=== PATIENT | female | born 1995 | race American Indian/Alaskan Native ===

== ENCOUNTER 2018-11-25 20:41 | Emergency (ER) | payer SELFPAY ==
[2018-11-25] MEDS ORDERED: DECADRON IM ONE (22:28)
[2018-11-25] MEDS ORDERED: BENADRYL PO ONE (22:28)
[2018-11-25] MEDS ORDERED: PEPCID PO ONE (22:28)
--- NOTE | 2018-11-25 22:34 | Emergency Department Report ---
HPI - General Chief Complaint: Allergic Reaction Time Seen by Provider: 11/25/18 22:28 - HPI HPI: pt states she was driving [place] and started to breakout in hives , has hx of same 1 yr ago still unknow cause symptoms include hives itching uticarial rash face neck trunk upper and lower extremities there is no sob no wheezing no stridor ED Past Medical Hx - Past Medical History Previous Medical History?: No - Surgical History Past Surgical History?: No - Social History Smoking Status: Never Smoker - Medications Home Medications: Home Medications Medication Instructions Recorded Confirmed Last Taken Type EPINEPHrine [Epipen 2-Ezio] 0.3 mg IJ PRN #1 auto.injct 11/25/18 Unknown Rx Famotidine [Pepcid] 20 mg PO BID 7 Days #14 tablet 11/25/18 Unknown Rx dexAMETHasone [Decadron] 4 mg PO BID 3 Days #6 tablet 11/25/18 Unknown Rx diphenhydrAMINE [Benadryl CAP] 25 mg PO Q6HR 7 Days #30 capsule 11/25/18 Unknown Rx ED Review of Systems ROS: Stated complaint: ALLERGIC REACTION FEELS LIKE THROAT CLOSING Other details as noted in HPI Constitutional: denies: chills, fever Eyes: denies: eye pain, eye discharge, vision change ENT: denies: ear pain, throat pain Respiratory: denies: cough, shortness of breath, wheezing Cardiovascular: denies: chest pain, palpitations Endocrine: no symptoms reported Gastrointestinal: denies: abdominal pain, nausea, diarrhea Genitourinary: denies: urgency, dysuria, discharge Musculoskeletal: denies: back pain, joint swelling, arthralgia Skin: pruritus, other (hives ). denies: rash Neurological: denies: headache, weakness, paresthesias Psychiatric: denies: anxiety, depression Hematological/Lymphatic: denies: easy bleeding, easy bruising Physical Exam - Physical Exam Vital Signs: Vital Signs 11/25/18 11/25/18 20:46 21:01 Temperature 99.1 F 99.1 F Pulse Rate 96 H 95 H Respiratory 18 18 Rate Blood Pressure 114/64 114/64 O2 Sat by Pulse 95 95 Oximetry General: Patient appears with no acute distress patient appears well hydrated well- nourished there is no respiratory distress no wheezing no stridor Physical Exam: ENT is patent there is no wheezing no swelling mostly clear bilaterally no wheezing no rhonchi no rhales , mild hives erythema no pain no fever ED Course Vital Signs 11/25/18 11/25/18 20:46 21:01 Temperature 99.1 F 99.1 F Pulse Rate 96 H 95 H Respiratory 18 18 Rate Blood Pressure 114/64 114/64 O2 Sat by Pulse 95 95 Oximetry ED Medical Decision Making - Medical Decision Making allergic reaction unknown trigger, symptoms are improved plan: benadryl , pepcid, decadron, given epipen teaching will dc with epipen pt will follow up with pcp in 2 days , will return to ed if symptoms worsen, pt is currently a/ox 3 ambulatory with steady gait. there is no resp distress no wheezing no sob no stridor Critical care attestation.: If time is entered above; I have spent that time in minutes in the direct care of this critically ill patient, excluding procedure time. ED Disposition Clinical Impression: Allergic reaction Qualifiers: Encounter type: initial encounter Qualified Code(s): T78.40XA - Allergy, unspecified, initial encounter Disposition: DC- TO HOME OR SELFCARE Is pt being admited?: No Does the pt Need Aspirin: No Condition: Stable Instructions: Epinephrine (Injection), Allergies (ED) Prescriptions: diphenhydrAMINE [Benadryl CAP] 25 mg PO Q6HR 7 Days #30 capsule dexAMETHasone [Decadron] 4 mg PO BID 3 Days #6 tablet EPINEPHrine [Epipen 2-Ezio] 0.3 mg IJ PRN #1 auto.injct Famotidine [Pepcid] 20 mg PO BID 7 Days #14 tablet Referrals: LISA IGNACIO MD [Staff Physician] - 3-5 Days [facility] [Outside] - 3-5 Days Forms: Work/School Release Form(ED) Time of Disposition: 22:41
[2018-11-25 23:56] VITALS: BP 119/64
== END 2018-11-25 23:00 | disposition home or self-care (01) ==
LOC: ED 20:41
DX: T78.40XA Allergy, unspecified, initial encounter (principal); Y92.89 Other specified places as the place of occurrence of the external cause
CPT/HCPCS: 96372; 99282; J1100

== ENCOUNTER 2018-12-28 16:13 | Emergency (ER) | payer OTHER ==
--- NOTE | 2018-12-28 16:21 | Event Note ---
ED Screening Note ED Screening Note: vag discharge [id number] no bleeding epigastric pain pt confirmed preg at obgyn LMP 11/25 This initial assessment/diagnostic orders/clinical plan/treatment(s) is/are subject to change based on patients health status, clinical progression and re- assessment by fellow clinical providers in the ED. Further treatment and workup at subsequent clinical providers discretion. Patient/guardian urged not to elope from the ED as their condition may be serious if not clinically assessed and managed. Initial orders include: ua
[2018-12-28 16:57] LABS: Bilirubin,Urine NEG (Negative); Blood,Urine NEG (Negative); Color,Urine Yellow (Yellow); Mucus,Urine 3+ /HPF; Protein,Urine <15 mg/dL mg/dL (Negative); Urobilinogen,Urine < 2.0 mg/dL (<2.0); WBC,Urine < 1.0 /HPF (0.0-6.0)
--- NOTE | 2018-12-28 17:31 | Emergency Department Report ---
ED HPI - General Chief complaint: Abdominal Pain Stated complaint: 4WKS /STOMACH PAIN Time Seen by Provider: 12/28/18 16:19 Source: patient Mode of arrival: Ambulatory Limitations: No Limitations - History of Present Illness Initial comments: Patient is a 23-year-old female presents to the emergency room with complaints of "stomachache" that began 2 days ago. She states she is currently 5 weeks . States she has also been having a vaginal discharge for the last 3 weeks which she states now has an odor. She denies any nausea, vomiting, diarrhea, fever, urinary symptoms, vaginal bleeding. She states on December 19 she did see preferred women's CRISIS COUNSELOR and had her confirmed just by urine. She denies any past medical history or allergies to medications. /P:0/A:2 - Related Data Previous Rx's Medication Instructions Recorded Last Taken Type EPINEPHrine [Epipen 2-Ezio] 0.3 mg IJ PRN #1 auto.injct 11/25/18 Unknown Rx Famotidine [Pepcid] 20 mg PO BID 7 Days #14 tablet 11/25/18 Unknown Rx dexAMETHasone [Decadron] 4 mg PO BID 3 Days #6 tablet 11/25/18 Unknown Rx diphenhydrAMINE [Benadryl CAP] 25 mg PO Q6HR 7 Days #30 capsule 11/25/18 Unknown Rx metroNIDAZOLE [metroNIDAZOLE 1 applicator VG DAILY 5 Days #5 12/28/18 Unknown Rx VAGINAL 0.75% gel] gel.w.appl Allergies Allergy/AdvReac Type Severity Reaction Status Date / Time No Known Allergies Allergy Unverified 11/25/18 21:04 ED Review of Systems ROS: Stated complaint: 4WKS /STOMACH PAIN Other details as noted in HPI Comment: All other systems reviewed and negative ED Past Medical Hx - Past Medical History Previous Medical History?: No - Surgical History Past Surgical History?: No - Social History Smoking Status: Never Smoker Substance Use Type: None - Medications Home Medications: Home Medications Medication Instructions Recorded Confirmed Last Taken Type EPINEPHrine [Epipen 2-Ezio] 0.3 mg IJ PRN #1 auto.injct 11/25/18 Unknown Rx Famotidine [Pepcid] 20 mg PO BID 7 Days #14 tablet 11/25/18 Unknown Rx dexAMETHasone [Decadron] 4 mg PO BID 3 Days #6 tablet 11/25/18 Unknown Rx diphenhydrAMINE [Benadryl CAP] 25 mg PO Q6HR 7 Days #30 capsule 11/25/18 Unknown Rx metroNIDAZOLE [metroNIDAZOLE 1 applicator VG DAILY 5 Days #5 12/28/18 Unknown Rx VAGINAL 0.75% gel] gel.w.appl ED Physical Exam - General Limitations: No Limitations General appearance: alert, in no apparent distress - Head Head exam: Present: atraumatic, normocephalic - Eye Eye exam: Present: normal appearance, PERRL, EOMI - ENT ENT exam: Present: mucous membranes moist - Respiratory Respiratory exam: Present: normal lung sounds bilaterally. Absent: respiratory distress, wheezes, rales, rhonchi, stridor, chest wall tenderness, accessory muscle use, decreased breath sounds, prolonged expiratory - Cardiovascular Cardiovascular Exam: Present: regular rate, normal rhythm, normal heart sounds. Absent: systolic murmur, diastolic murmur, rubs, gallop - GI/Abdominal GI/Abdominal exam: Present: soft, normal bowel sounds. Absent: distended, t enderness, guarding, rebound, rigid - External exam: Present: normal external exam. Absent: erythema, swelling, lesions, lacerations, ecchymosis, bleeding Speculum exam: Present: vaginal discharge (small amount white discharge), cervical discharge (small amount white discharge), other (inspection machine tender: Rebecca). Absent: vaginal bleeding, foreign body, tissue, laceration Bi-manual exam: Present: normal bi-manual exam. Absent: cervical motion tendernes, adnexal tenderness, adnexal mass - Back Exam Back exam: Absent: CVA tenderness (R), CVA tenderness (L) - Neurological Exam Neurological exam: Present: alert, oriented X3 - Psychiatric Psychiatric exam: Present: normal affect, normal mood - Skin Skin exam: Present: warm, dry, intact ED Course Vital Signs 12/28/18 12/28/18 12/28/18 16:19 19:43 19:45 Temperature 98.1 F 98 F Pulse Rate 106 H 88 Respiratory 16 18 18 Rate Blood Pressure 115/77 Blood Pressure 112/68 [Left] O2 Sat by Pulse 100 100 100 Oximetry ED Medical Decision Making - Lab Data Lab Results 12/28/18 Range/Units 16:46 Urine Color Yellow (Yellow) Urine Turbidity Clear (Clear) Urine pH 5.0 (5.0-7.0) Ur Specific [place] 1.023 (1.003-1.030) Urine Protein <15 mg/dl (Negative) mg/dL Urine Glucose (UA) Neg (Negative) mg/dL Urine Ketones Tr (Negative) mg/dL Urine Blood Neg (Negative) Urine Nitrite Neg (Negative) Urine Bilirubin Neg (Negative) Urine Urobilinogen < 2.0 (<2.0) mg/dL Ur Leukocyte Esterase Neg (Negative) Urine WBC (Auto) < 1.0 (0.0-6.0) /HPF Urine RBC (Auto) 2.0 (0.0-6.0) /HPF U Epithel Cells (Auto) 3.0 (0-13.0) /HPF Urine Mucus 3+ /HPF - Radiology Data Radiology results: report reviewed US OB transvaginal INDICATION / CLINICAL INFORMATION: 5 weeks , abd pain. COMPARISON: None available. FINDINGS: Intrauterine gestational sac measures 7.4 mm, 5 weeks 3 days. Yolk sac is visualized. No pole is identified. No uterine abnormalities are seen. Maternal ovaries are unremarkable. Flow is seen to both ovaries. No adnexal lesions. No free fluid. IMPRESSION: 1. Intrauterine gestational sac measures 5 weeks, 3 days. Yolk sac is seen but no pole is identified. This could be due to very early . Correlation with serial beta hCG levels is recommended. Signer Name: Fletcher Pereira MD Signed: 12/28/2018 7:08 PM Workstation Name: [id number] Transcribed By: PAUL Dictated By: Fletcher Pereira MD Electronically Authenticated By: Fletcher Pereira MD Signed Date/Time: 12/28/181907 - Medical Decision Making Patient is a 23-year-old female presents to the emergency room with complaints of "stomachache" that began 2 days ago. She states she is currently 5 weeks . States she has also been having a vaginal discharge for the last 3 weeks which she states now has an odor. She denies any nausea, vomiting, diarrhea, fever, urinary symptoms, vaginal bleeding. She states on December 19 she did see preferred women's CRISIS COUNSELOR and had her confirmed just by urine. She denies any past medical history or allergies to medications. /P:0/A:2. VSS. no abd tenderness on exam. UA without evidence of UTI. wet prep shows evidence of BV. pt swabbed for G/C. OB US shows: Intrauterine gestational sac measures 5 weeks, 3 days. Yolk sac is seen but no pole is identified. This could be due to very early . Correlation with serial beta hCG levels is recommended. pt given prescription for metrogel. advised to please use medication as prescribed. Drink plenty of water. Please take a daily vitamin [id number]. Check back with medical records in 1 week for the results of your tests and see if you need further treatment. Please follow up with a CRISIS COUNSELOR in the next 2-3 days. Return to the emergency room for any new or worsening symptoms. - Differential Diagnosis IUP, UTI, BV, STD, vaginitis, threatened miscarriage Critical care attestation.: If time is entered above; I have spent that time in minutes in the direct care of this critically ill patient, excluding procedure time. ED Disposition Clinical Impression: Bacterial vaginosis Qualifiers: Weeks of gestation: less than 8 weeks Qualified Code(s): Z3A.01 - Less than 8 weeks gestation of Disposition: DC-01 TO HOME OR SELFCARE Is pt being admited?: No Does the pt Need Aspirin: No Condition: Stable Instructions: (ED), Bacterial Vaginosis (ED) Additional Instructions: Please use medication as prescribed. Drink plenty of water. Please take a daily vitamin [id number]. Check back with medical records in 1 week for the results of your tests and see if you need further treatment. Please follow up with a CRISIS COUNSELOR in the next 2-3 days. Return to the emergency room for any new or worsening symptoms. Prescriptions: metroNIDAZOLE [metroNIDAZOLE VAGINAL 0.75% gel] 1 applicator VG DAILY 5 Days #5 gel.w.appl Referrals: VARSHA BARDALES MD [Primary Care Provider] - 2-3 Days [facility] [Provider Group] - 2-3 Days Forms: STI Treatment and Prevention, Work/School Release Form(ED) Time of Disposition: 19:23 Print Language: MONGOLIAN
--- NOTE | 2018-12-28 19:12 | Ultrasound Report ---
US OB transvaginal INDICATION / CLINICAL INFORMATION: 5 weeks , abd pain. COMPARISON: None available. FINDINGS: Intrauterine gestational sac measures 7.4 mm, 5 weeks 3 days. Yolk sac is visualized. No pole i s identified. No uterine abnormalities are seen. Maternal ovaries are unremarkable. Flow is seen to b oth ovaries. No adnexal lesions. No free fluid. IMPRESSION: 1. Intrauterine gestational sac measures 5 weeks, 3 days. Yolk sac is seen but no pole is ident ified. This could be due to very early . Correlation with serial beta hCG levels is recommen ded. Signer Name: Fletcher Pereira MD Signed: 12/28/2018 7:08 PM Workstation Name: [id number]
[2018-12-28 19:44] VITALS: BP 112/68
== END 2018-12-28 19:47 | disposition home or self-care (01) ==
LOC: ED 16:13
DX: O23.591 Infection of other part of genital tract in pregnancy, first trimester (principal); B96.89 Other specified bacterial agents as the cause of diseases classified elsewhere; Z3A.08 8 weeks gestation of pregnancy; Z79.899 Other long term (current) drug therapy
CPT/HCPCS: 76817; 81001; 87210; 87591; 99284

== ENCOUNTER 2019-01-20 21:50 | Emergency (ER) | payer MEDICAID, OTHER ==
--- NOTE | 2019-01-20 22:06 | Event Note ---
ED Screening Note Date of service: 01/20/19 Time: 22:04 ED Screening Note: 23 y o f presents with left foot redness and swelling with pain PMH: december 01 currently This initial assessment/diagnostic orders/clinical plan/treatment(s) is/are subject to change based on patients health status, clinical progression and re- assessment by fellow clinical providers in the ED. Further treatment and workup at subsequent clinical providers discretion. Patient/guardian urged not to elope from the ED as their condition may be serious if not clinically assessed and managed. Initial orders include: acc eval
--- NOTE | 2019-01-21 00:22 | Emergency Department Report ---
ED Animal Bite HPI - General Chief Complaint: Skin Rash Stated Complaint: SWOLLEN LEFT FOOT Time Seen by Provider: 01/20/19 22:04 Source: patient, family Mode of arrival: Ambulatory Limitations: No Limitations - History of Present Illness Initial Comments: Patient reports that she was bitten by insect while sitting in her car 2 days ago. She reports that her left foot is now swollen with some redness and painful. She also says she has insect bites to her arms. Reports she to her left arm and one to her right arm. Reports pain in 6-7 out of 10 and feels sore. Tetanus vaccine is not up-to-date. Denies any direct trauma. Denies any fever or chills. Patient says she is 8 weeks and has care. Denies any vaginal bleeding, discharge, painful urination, abdominal or back pain. She has no related problems. Pain is worse with movement better rest denies any difficulty breathing, chest pain or shortness of breath. Denies any swelling to her tongue or difficulty swallowing. MD Complaint: animal bite Onset/Timin -: days(s) Left: Arm (redness and swelling from insect bites), Foot (redness and swelling from insect bite), Right: Arm Animal: other ([place]) Animal Control Notified: No Description: unknown animal (but was from bug), immunizations unknown Mechanism: bite (from a bug) Pain Description: burning, constant Severity scale (0 -10): 7 Context: other (bug bite) Associated Symptoms: erythema, rash. denies: discharge from wound, bleeding, fever, chills, loss of consciousness, cough, headache, diaphoresis, shortness of breath Treatments Prior to Arrival: other (none) - Related Data Patient Tetanus UTD: No Previous Rx's Medication Instructions Recorded Last Taken Type EPINEPHrine [Epipen 2-Ezio] 0.3 mg IJ PRN #1 auto.injct 11/25/18 Unknown Rx Famotidine [Pepcid] 20 mg PO BID 7 Days #14 tablet 11/25/18 Unknown Rx dexAMETHasone [Decadron] 4 mg PO BID 3 Days #6 tablet 11/25/18 Unknown Rx diphenhydrAMINE [Benadryl CAP] 25 mg PO Q6HR 7 Days #30 capsule 11/25/18 Unknown Rx metroNIDAZOLE [metroNIDAZOLE 1 applicator VG DAILY 5 Days #5 12/28/18 Unknown Rx VAGINAL 0.75% gel] gel.w.appl Acetaminophen [Acetaminophen ER 650 mg PO Q8HR PRN #12 tablet.er 01/21/19 Unknown Rx TAB] cephALEXin [Keflex] 500 mg PO Q8HR 7 Days #21 cap 01/21/19 Unknown Rx Allergies Allergy/AdvReac Type Severity Reaction Status Date / Time No Known Allergies Allergy Verified 01/20/19 21:54 ED Review of Systems ROS: Stated complaint: SWOLLEN LEFT FOOT Other details as noted in HPI Constitutional: denies: chills, fever ENT: denies: throat pain, congestion Respiratory: denies: cough, shortness of breath, SOB with exertion, SOB at rest, stridor, wheezing Cardiovascular: denies: chest pain, palpitations, dyspnea on exertion, edema, syncope Gastrointestinal: denies: abdominal pain, nausea, vomiting Genitourinary: denies: urgency, dysuria, hematuria Musculoskeletal: joint swelling, arthralgia. denies: back pain, myalgia Skin: rash. denies: pruritus Neurological: denies: headache, weakness, numbness, paresthesias, abnormal gait, vertigo ED Past Medical Hx - Past Medical History Previous Medical History?: No - Surgical History Past Surgical History?: No - Family History Family history: hypertension - Social History Smoking Status: Never Smoker Substance Use Type: None - Medications Home Medications: Home Medications Medication Instructions Recorded Confirmed Last Taken Type EPINEPHrine [Epipen 2-Ezio] 0.3 mg IJ PRN #1 auto.injct 11/25/18 Unknown Rx Famotidine [Pepcid] 20 mg PO BID 7 Days #14 tablet 11/25/18 Unknown Rx dexAMETHasone [Decadron] 4 mg PO BID 3 Days #6 tablet 11/25/18 Unknown Rx diphenhydrAMINE [Benadryl CAP] 25 mg PO Q6HR 7 Days #30 capsule 11/25/18 Unknown Rx metroNIDAZOLE [metroNIDAZOLE 1 applicator VG DAILY 5 Days #5 12/28/18 Unknown Rx VAGINAL 0.75% gel] gel.w.appl Acetaminophen [Acetaminophen ER 650 mg PO Q8HR PRN #12 tablet.er 01/21/19 Unknown Rx TAB] cephALEXin [Keflex] 500 mg PO Q8HR 7 Days #21 cap 01/21/19 Unknown Rx ED Physical Exam - General Limitations: No Limitations General appearance: alert, in no apparent distress - Head Head exam: Present: atraumatic, normocephalic, normal inspection - Eye Eye exam: Present: normal appearance, PERRL, EOMI. Absent: periorbital swelling, periorbital tenderness Pupils: Present: normal accommodation - ENT ENT exam: Present: normal exam, normal orophraynx, mucous membranes moist, other (uvula is midline and tongue is normal with patent airway) - Neck Neck exam: Present: normal inspection, full ROM, other (no tracheal deviation or swelling to neck). Absent: tenderness, lymphadenopathy - Respiratory Respiratory exam: Present: normal lung sounds bilaterally. Absent: respiratory distress, wheezes, rales, rhonchi, stridor, chest wall tenderness, accessory muscle use, decreased breath sounds, prolonged expiratory - Cardiovascular Cardiovascular Exam: Present: normal rhythm, tachycardia (104), normal heart sounds - GI/Abdominal GI/Abdominal exam: Present: soft, normal bowel sounds. Absent: tenderness, rigid - Extremities Exam Extremities exam: Present: normal inspection, full ROM, tenderness (left foot), normal capillary refill, pedal edema (left foot), joint swelling (left ankle and foot), other (No cce. + 2 pulses in all extremities, no neurovascular compromise except for swelling to left foot and left ankle with small pinpoint entrance wound left malleolar area.). Absent: calf tenderness - Back Exam Back exam: Present: normal inspection, full ROM - Neurological Exam Neurological exam: Present: alert, oriented X3, normal gait - Psychiatric Psychiatric exam: Present: normal affect, normal mood - Skin Skin exam: Present: warm, dry, rash (erythema with small pinpoint entrance wound to the left outer malleolus area, to areas to left forearm and one area to right forearm.. Tender to palpate at site), erythema. Absent: cyanosis, urticaria, vesicles, abrasion, ecchymosis ED Course Vital Signs 01/20/19 01/20/19 01/21/19 21:54 22:05 01:43 Temperature 98.7 F 98.7 F Pulse Rate 104 H 104 H Respiratory 16 16 16 Rate Blood Pressure 103/63 Blood Pressure 103/63 [Right] O2 Sat by Pulse 98 98 Oximetry - Reevaluation(s) Reevaluation #1: 01/21/19 02:05 Patient given Keflex 500 mg by mouth, Tylenol with Codeine 2 tablets by mouth for pain and booster 0.5 mL injection. Upon reevaluation her pain is better and patient is stable in no acute distress. Critical care attestation.: If time is entered above; I have spent that time in minutes in the direct care of this critically ill patient, excluding procedure time. ED Disposition Clinical Impression: Insect bite, multiple, Foot pain, left Cellulitis Qualifiers: Site of cellulitis: other site Qualified Code(s): L03.818 - Cellulitis of other sites Disposition: DC- TO HOME OR SELFCARE Is pt being admited?: No Does the pt Need Aspirin: No Condition: Stable Instructions: Arthralgia (ED), Cellulitis (ED), Insect Bite or Sting (ED) Additional Instructions: Please follow-up with your MEASUREMENT SPECIALIST and primary care physician in 2 days. Take Medication as prescribed If affected areas become worse to include increased reddening, swelling, fever and/or chills, nausea or vomiting, weakness. Return to the emergency room [facility] DEBRA [Primary Care Provider] - 01/23/19 follow-up, MEASUREMENT SPECIALIST [Other] - 01/23/19 Forms: Work/School Release Form(ED), Accompanied Note ED Medical Decision Making - Medical Decision Making 23-year-old female here status post insect bite 2 days ago with pain, redness and swelling to left ankle and foot and redness and swelling noted to left forearm. She is to bite jaxon to her left forearm and one to her right forearm. Patient given tetanus vaccine in the emergency room, started on Keflex for cellulitis and Tylenol No. 3 given for pain. She is stable. Vital signs stable and pain is controlled. She does have a primary care physician I discussed with her she needs to follow up with her primary care physician and MEASUREMENT SPECIALIST to call tomorrow to schedule an appointment for follow-up visit in 2 days. I also discussed with her that if her symptoms to her left foot and bilateral forearm become worsens with increased pain, fever or chills, increasing redness and swelling to return to the emergency if a PE otherwise follow-up with primary care and MEASUREMENT SPECIALIST. She voiced understanding and discharged home with her friend in stable condition with prescription for Tylenol, Keflex
[2019-01-21] MEDS ORDERED: BOOSTRIX IM ONE (00:23)
[2019-01-21] MEDS ORDERED: KEFLEX PO ONE (00:23)
[2019-01-21] MEDS ORDERED: TYLENOL #3 PO ONE (00:23)
[2019-01-21 03:01] VITALS: BP 104/78
== END 2019-01-21 03:01 | disposition home or self-care (01) ==
LOC: ED 21:50
DX: S90.862A Insect bite (nonvenomous), left foot, initial encounter (principal); L03.116 Cellulitis of left lower limb; Z79.899 Other long term (current) drug therapy; W57.XXXA Bitten or stung by nonvenomous insect and other nonvenomous arthropods, initial encounter; Y93.89 Activity, other specified; Y92.89 Other specified places as the place of occurrence of the external cause; Y99.8 Other external cause status
CPT/HCPCS: 90471; 90715; 99282

== ENCOUNTER 2019-07-31 18:20 | Emergency (ER) | payer SELFPAY | END 2019-07-31 19:00 | disposition left against medical advice (07) | LOC: ED 18:20 | DX: A64 Unspecified sexually transmitted disease (principal); Z53.21 Procedure and treatment not carried out due to patient leaving prior to being seen by health care provider ==

== ENCOUNTER 2020-10-30 14:22 | Emergency (ER) | payer MEDICAID, OTHER ==
[2020-10-30 15:40] VITALS: BP 110/76
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
== END 2020-10-30 15:55 | disposition home or self-care (01) ==
LOC: ED 14:22
DX: M54.6 Pain in thoracic spine (principal); Z79.899 Other long term (current) drug therapy; V49.49XA Driver injured in collision with other motor vehicles in traffic accident, initial encounter; Y93.89 Activity, other specified; Y92.410 Unspecified street and highway as the place of occurrence of the external cause; Y99.8 Other external cause status
CPT/HCPCS: 99281

== ENCOUNTER 2021-03-17 16:00 | Emergency (ER) | payer MEDICAID ==
[2021-03-17] MEDS ORDERED: SODIUM CHLORIDE 0.9% 1000 ML 1,000 ML IV ONE (16:34)
[2021-03-17] MEDS ORDERED: ONDANSETRON 4 MG/2 ML INJ IV ONE (16:34)
[2021-03-17] MEDS ORDERED: KETOROLAC 30 MG/1 ML INJ IV ONE (16:34)
--- NOTE | 2021-03-17 16:38 | Emergency Department Report ---
ED Abdominal Pain HPI - General Chief Complaint: Nausea/Vomiting/Diarrhea Stated Complaint: CHILLS, DIZZINESS Time Seen by Provider: 03/17/21 16:33 Source: patient Mode of arrival: Ambulatory Limitations: No Limitations - History of Present Illness Initial Comments: 25-year-old F [place]ian female presents emerged with my department complaining of a 2-day history of nausea, diarrhea, abdominal pain of an unknown etiology. She reports no trauma no reports no dysuria no fever, chills, sweats. MD Complaint: abdominal pain -: Gradual Location: diffuse Severity: mild Quality: aching Consistency: constant Improves With: nothing Worsens With: nothing Associated Symptoms: nausea, diarrhea. denies: dysuria, hematemesis, melena, h ematuria, anorexia - Related Data Previous Rx's Medication Instructions Recorded Last Taken Type EPINEPHrine [Epipen 2-Ezio] 0.3 mg IJ PRN #1 auto.injct 11/25/18 Unknown Rx Famotidine [Pepcid] 20 mg PO BID 7 Days #14 tablet 11/25/18 Unknown Rx dexAMETHasone [Decadron] 4 mg PO BID 3 Days #6 tablet 11/25/18 Unknown Rx diphenhydrAMINE [Benadryl CAP] 25 mg PO Q6HR 7 Days #30 capsule 11/25/18 Unknown Rx metroNIDAZOLE [metroNIDAZOLE 1 applicator VG DAILY 5 Days #5 12/28/18 Unknown Rx VAGINAL 0.75% gel] gel.w.appl Acetaminophen [Acetaminophen ER 650 mg PO Q8HR PRN #12 tablet.er 01/21/19 Unknown Rx TAB] cephALEXin [Keflex] 500 mg PO Q8HR 7 Days #21 cap 01/21/19 Unknown Rx Naproxen [Naprosyn TAB] 500 mg PO BID PRN #20 tablet 10/30/20 Unknown Rx methOCARBAMOL [Robaxin TAB] 750 mg PO TID PRN #21 tablet 10/30/20 Unknown Rx Ciprofloxacin HCl 500 mg PO BID #28 tablet 03/17/21 Unknown Rx Hyoscyamine Subl [Levsin Sl 0.125 0.125 mg SL Q6HR PRN #20 tab 03/17/21 Unknown Rx TAB] metroNIDAZOLE [Flagyl] 500 mg PO Q12HR #28 tab 03/17/21 Unknown Rx Allergies Allergy/AdvReac Type Severity Reaction Status Date / Time No Known Allergies Allergy Verified 03/17/21 16:17 ED Review of Systems ROS: Stated complaint: CHILLS, DIZZINESS Other details as noted in HPI Comment: All other systems reviewed and negative ED Past Medical Hx - Past Medical History Previous Medical History?: No Additional medical history: denies - Surgical History Past Surgical History?: No Additional Surgical History: denies - Social History Smoking Status: Never Smoker Substance Use Type: None - Medications Home Medications: Home Medications Medication Instructions Recorded Confirmed Last Taken Type EPINEPHrine [Epipen 2-Ezio] 0.3 mg IJ PRN #1 auto.injct 11/25/18 Unknown Rx Famotidine [Pepcid] 20 mg PO BID 7 Days #14 tablet 11/25/18 Unknown Rx dexAMETHasone [Decadron] 4 mg PO BID 3 Days #6 tablet 11/25/18 Unknown Rx diphenhydrAMINE [Benadryl CAP] 25 mg PO Q6HR 7 Days #30 capsule 11/25/18 Unknown Rx metroNIDAZOLE [metroNIDAZOLE 1 applicator VG DAILY 5 Days #5 12/28/18 Unknown Rx VAGINAL 0.75% gel] gel.w.appl Acetaminophen [Acetaminophen ER 650 mg PO Q8HR PRN #12 tablet.er 01/21/19 Unknown Rx TAB] cephALEXin [Keflex] 500 mg PO Q8HR 7 Days #21 cap 01/21/19 Unknown Rx Naproxen [Naprosyn TAB] 500 mg PO BID PRN #20 tablet 10/30/20 Unknown Rx methOCARBAMOL [Robaxin TAB] 750 mg PO TID PRN #21 tablet 10/30/20 Unknown Rx Ciprofloxacin HCl 500 mg PO BID #28 tablet 03/17/21 Unknown Rx Hyoscyamine Subl [Levsin Sl 0.125 0.125 mg SL Q6HR PRN #20 tab 03/17/21 Unknown Rx TAB] metroNIDAZOLE [Flagyl] 500 mg PO Q12HR #28 tab 03/17/21 Unknown Rx ED Physical Exam - General Limitations: No Limitations General appearance: alert, in no apparent distress - Head Head exam: Present: atraumatic, normocephalic - Eye Eye exam: Present: normal appearance, PERRL, EOMI Pupils: Present: normal accommodation - ENT ENT exam: Present: mucous membranes moist, TM's normal bilaterally - Neck Neck exam: Present: normal inspection - Respiratory Respiratory exam: Present: normal lung sounds bilaterally. Absent: respiratory distress - Cardiovascular Cardiovascular Exam: Present: regular rate, normal rhythm. Absent: systolic murmur, diastolic murmur, rubs, gallop - GI/Abdominal GI/Abdominal exam: Present: soft, normal bowel sounds - Extremities Exam Extremities exam: Present: normal inspection - Back Exam Back exam: Present: normal inspection - Neurological Exam Neurological exam: Present: alert, oriented X3 - Psychiatric Psychiatric exam: Present: normal affect, normal mood - Skin Skin exam: Present: warm, dry, intact, normal color. Absent: rash ED Course Vital Signs 03/17/21 19:44 Temperature 98.9 F Pulse Rate 83 Respiratory 14 Rate Blood Pressure 93/59 [Left] O2 Sat by Pulse 97 Oximetry ED Medical Decision Making - Lab Data Result diagrams: 03/17/21 16:46 03/17/21 21:38 - Medical Decision Making Patient presents to the emergency department with nausea, vomiting, diarrhea, differential diagnosis includes possible acute gastroenteritis. Abdominal examination without peritoneal signs. Currently patient is euvolemic without evidence of dehydration. No evidence of surgical abdomen or other acute medical emergency including bowel obstruction, viscus perforation, vascular catastrophe, appendicitis, cholecystitis at this time. Presentation not consistent with other acute emergent causes of vomiting and diarrhea at this time. No indication for abdominal imaging Plan supportive care, oral/IV rehydration, antiemetics and reassess Critical care attestation.: If time is entered above; I have spent that time in minutes in the direct care of this critically ill patient, excluding procedure time. ED Disposition Clinical Impression: Enteritis Disposition: HOME / SELF CARE / HOMELESS Is pt being admited?: No Does the pt Need Aspirin: No Condition: Stable Instructions: Colitis, Viral Gastroenteritis, Adult, [id number], Duodenitis, Food Choices to Help Relieve Diarrhea, Adult Prescriptions: Ciprofloxacin HCl 500 mg PO BID #28 tablet metroNIDAZOLE [Flagyl] 500 mg PO Q12HR #28 tab Hyoscyamine Subl [Levsin Sl 0.125 TAB] 0.125 mg SL Q6HR PRN #20 tab PRN Reason: abdominal cramps and spasms Referrals: PRIMARY CARE, [Primary Care Provider] - 3-5 Days
[2021-03-17 16:59] LABS: Basophils % (Auto) 0.2 % (0.0-1.8); Eosinophils % (Auto) 0.2 % (0.0-4.3); Hemoglobin 14.3 gm/dl (10.1-14.3); Lymphocytes # (Auto) 0.9 K/mm3 (1.2-5.4); Lymphocytes % (Auto) 18.5 % (13.4-35.0); Mean Corpuscular HGB Conc 35 % (30-34); Mean Corpuscular Volume 90 fl (79-97); Monocytes # (Auto) 0.6 K/mm3 (0.0-0.8); Monocytes % (Auto) 12.6 % (0.0-7.3); Platelet Count 246 K/mm3 (140-440); Red Blood Count 4.57 M/mm3 (3.65-5.03)
[2021-03-17 18:15] LABS: Bilirubin,Urine NEG (Negative); Blood,Urine SM (Negative); Color,Urine Amber (Yellow); Mucus,Urine 3+ /HPF
[2021-03-17] MEDS ORDERED: diphenhydrAMINE 50 MG/ML VIAL IV STA (19:34)
[2021-03-17] MEDS ORDERED: METOCLOPRAMIDE 10 MG/2 ML INJ IV STA (19:34)
[2021-03-17 19:45] VITALS: BP 93/59
--- NOTE | 2021-03-17 21:40 | Cat Scan Report ---
CT ABDOMEN AND PELVIS WITH CONTRAST INDICATION / CLINICAL INFORMATION: Lower abdominal pain. TECHNIQUE: Axial CT images were obtained through the abdomen and pelvis after 100 cc Omnipaque [address] scans at this location are performed using CT dose reduction for ALARA by means of automated exposure control. COMPARISON: None available. FINDINGS: LOWER CHEST: No significant abnormality. LIVER: No significant abnormality. GALLBLADDER: No significant abnormality. BILE DUCTS: No significant abnormality. PANCREAS: No significant abnormality. SPLEEN: No significant abnormality. ADRENALS: No significant abnormality. KIDNEYS / URETERS: No significant abnormality. STOMACH / SMALL BOWEL: Multiple fluid-filled distal small bowel loops are seen with associated hypere chelsey. No significant small bowel dilatation or other significant abnormalities. COLON: No significant abnormality. APPENDIX: No significant abnormality. PERITONEUM: No free fluid. No free air. No fluid collection. LYMPH NODES: No significant adenopathy. AORTA / ARTERIES: No significant abnormality. IVC / VEINS: No significant abnormality. URINARY BLADDER: No significant abnormality. REPRODUCTIVE ORGANS: No significant abnormality. ADDITIONAL FINDINGS: None. BONES: No significant abnormality. IMPRESSION: Suspected uncomplicated enteritis as above. No other acute findings. Signer Name: Brian Ramires MD Signed: 03/17/2021 9:36 PM Workstation Name: [id number]
[2021-03-17 22:18] LABS: Alanine Aminotransferase 8 units/L (7-56); Albumin 3.8 g/dL (3.9-5); Blood Urea Nitrogen 7 mg/dL (7-17); Calcium 8.4 mg/dL (8.4-10.2); Hemolysis Index 2
[2021-03-17 22:25] LABS: BUN/Creatinine Ratio 14
== END 2021-03-17 23:48 | disposition home or self-care (01) ==
LOC: ED 16:00
DX: K52.9 Noninfective gastroenteritis and colitis, unspecified (principal); Z79.899 Other long term (current) drug therapy
CPT/HCPCS: 36415; 74177; 80053; 81001; 83690; 84703; 85025; 96361; 96374; 96375; 99284; J1885; J2405; J7030; Q9967